=== PATIENT | male | born 1975 | race African-American/Black ===

== ENCOUNTER 2021-01-14 18:17 | Emergency (ER) | payer SELFPAY ==
[2021-01-14] MEDS ORDERED: Lidocaine 1% PF 5 ML VIAL ONE (19:42)
== END 2021-01-14 20:58 | disposition home or self-care (01) ==
LOC: ERS 18:17
DX: S62.512B Displaced fracture of proximal phalanx of left thumb, initial encounter for open fracture (principal); F17.210 Nicotine dependence, cigarettes, uncomplicated; W27.0XXA Contact with workbench tool, initial encounter
CPT/HCPCS: 12002; 96365; J0690